=== PATIENT | male | born 1965 | race Caucasian/White ===

== ENCOUNTER → 2016-12-21 | Outpatient (REF) | payer MEDICARE, MEDICAID ==
[2016-12-21 12:58] LABS: BASO % 0.5 % (0.0-1.0); EOS # 0.3 K/mm3 (0.0-0.50); EOS % 4.1 % (0.0-3.0); LARGE UNSTAINED CELL # 0.1 K/mm3 (0.0-0.4); LYMPH # 1.7 K/mm3 (1.5-4.5); MEAN CORPUSCULAR HEMOGLOBIN 31.2 pg (27.0-33.0); MEAN CORPUSCULAR HGB CONC 34.2 g/dl (32.0-36.5); MEAN CORPUSCULAR VOLUME 91.4 fl (80.0-96.0); MONO # 0.4 K/mm3 (0.0-0.8); NEUTROPHILS # 4.3 K/mm3 (1.8-7.7); NEUTROPHILS % 63.4 % (36.0-66.0); PLATELET COUNT, AUTOMATED 286 k/mm3 (150-450); RED CELL DISTRIBUTION WIDTH 13.2 % (11.5-14.5); WHITE BLOOD COUNT 6.7 K/mm3 (4.0-10.0)
[2016-12-21 13:08] LABS: ALBUMIN 3.7 GM/DL (3.2-5.2); ALBUMIN/GLOBULIN RATIO 1.19 (1.00-1.93); ALKALINE PHOSPHATASE 106 U/L (45-117); ALT/SGPT 24 U/L (12-78); ANION GAP 7 MEQ/L (8-16); AST/SGOT 19 U/L (15-37); BILIRUBIN,TOTAL 0.4 MG/DL (0.2-1.0); BLOOD UREA NITROGEN 16 MG/DL (7-18); CALCIUM LEVEL 9.4 MG/DL (8.5-10.1); CARBON DIOXIDE LEVEL 30 MEQ/L (21-32); CHLORIDE LEVEL 106 MEQ/L (98-107); CHOLESTEROL LEVEL 216 MG/DL (<200); GLOMERULAR FILTRATION RATE > 60.0 (>60); GLUCOSE, FASTING 127 MG/DL (70-105); POTASSIUM SERUM 4.6 MEQ/L (3.5-5.1); SODIUM LEVEL 143 MEQ/L (136-145); TOTAL PROTEIN 6.8 GM/DL (6.4-8.2); TRIGLYCERIDES LEVEL 169 MG/DL (<150)
== END ==
LOC: M SFHCADAM 08:11
PROVIDERS: ATTEND Physician Assistant Medical
DX: E78.2 Mixed hyperlipidemia (principal); R06.09 Other forms of dyspnea

== ENCOUNTER 2017-01-01 20:04 | Emergency (ER) | payer MEDICARE, MEDICAID ==
[~2017-01-01] VITALS: Ht 175.3 cm; Wt 86.2 kg
[2017-01-01] MEDS ORDERED: NICOINH IN (20:15)
[2017-01-01] MEDS ORDERED: ADVA230A INH (20:15)
[2017-01-01] MEDS ORDERED: OMEP40CA2 PO (20:15)
[2017-01-01] MEDS ORDERED: PROA1AER INH (20:15)
[2017-01-01] MEDS ORDERED: SIMV20TA2 PO (20:15)
[2017-01-01] MEDS ORDERED: methylPREDNISolone INJ 125 MG/2 ML VIAL (J2930) IV ONE (21:15)
[2017-01-01] MEDS ORDERED: IPRATROPIUM 0.5MG/ALBUTEROL 2.5MG INH SOL UD 3ML (DUONEB)(J7620) NEB PRN (21:15)
[2017-01-01 21:38] LABS: VENOUS BASE EXCESS 4.2 (-2.0-2.0); VENOUS O2 SATURATION 74.7 % (60.0-80.0); VENOUS PARTIAL PRESSURE CO2 43.8 mmHg (38.0-50.0); VENOUS PARTIAL PRESSURE O2 36.1 mmHg (30.0-50.0); VENOUS STANDARD HCO3 27.6 MEQ/L; VENOUS TOTAL CO2 30.4 MEQ/L (24.0-28.0)
[2017-01-01 21:40] LABS: BASO % 0.6 % (0.0-1.0); EOS # 0.3 K/mm3 (0.0-0.50); EOS % 3.9 % (0.0-3.0); LARGE UNSTAINED CELL # 0.1 K/mm3 (0.0-0.4); LARGE UNSTAINED CELL % 0.8 % (0.0-4.0); LYMPH # 2.3 K/mm3 (1.5-4.5); LYMPH % 26.5 % (24.0-44.0); MEAN CORPUSCULAR HEMOGLOBIN 30.4 pg (27.0-33.0); MEAN CORPUSCULAR VOLUME 92.3 fl (80.0-96.0); MONO # 0.5 K/mm3 (0.0-0.8); NEUTROPHILS # 5.2 K/mm3 (1.8-7.7); NEUTROPHILS % 62.2 % (36.0-66.0); PLATELET COUNT, AUTOMATED 230 k/mm3 (150-450); RED CELL DISTRIBUTION WIDTH 13.9 % (11.5-14.5); WHITE BLOOD COUNT 8.4 K/mm3 (4.0-10.0)
[2017-01-01 21:46] VITALS: BP 156/95
[2017-01-01 22:03] LABS: ANION GAP 5 MEQ/L (8-16); BLOOD UREA NITROGEN 18 MG/DL (7-18); CALCIUM LEVEL 8.5 MG/DL (8.5-10.1); CARBON DIOXIDE LEVEL 28 MEQ/L (21-32); CHLORIDE LEVEL 109 MEQ/L (98-107); CREATININE FOR GFR 0.79 MG/DL (0.70-1.30); GLOMERULAR FILTRATION RATE > 60.0 (>60); GLUCOSE, FASTING 111 MG/DL (70-105); POTASSIUM SERUM 4.1 MEQ/L (3.5-5.1); SODIUM LEVEL 142 MEQ/L (136-145)
[2017-01-02] MEDS ORDERED: PRED20TA PO (00:07)
--- NOTE | 2017-01-02 10:34 | REP ---
CHEST X-RAY PA AND LATERAL: 01/01/2017. Comparison: 04/07/2016, 01/12/2016, CT chest 05/11/2016. Clinical history: Dyspnea and cough. Prior lung resection. Findings: Slight volume loss with elevation of the right diaphragm and some surgical clips about the right hilum and lung field. This is consistent with prior partial lung resection. There is no effusion, lateral pleural thickening, apical scarring or acute infiltrate. No pneumothorax. Heart size not enlarged for this degree of inflation. The aorta is mildly tortuous but normal for age. Airway intact. There is an anterior cervical discectomy and fusion plate and screw noted unchanged. No free air. Bones show no compression deformity. Impression: 1. Hypoinflated right chest with prior partial lung resection and clips but no effusion, acute infiltrate or pneumothorax. No visible mass. 2. Cardiomediastinal silhouette with postoperative appearance and heart size exaggerated by low level of inflation. No edema or effusion. 3. Bones without acute finding. No free air. Signed by Wander Muñoz MD 01/02/2017 08:21 P
--- NOTE | 2017-01-03 20:40 | ECGEPIP ---
Stationary ECG Study [facility] - ED Test Date: 2017-01-01 Pat Name: SIN TORRES Department: Room: - Gender: M [employer] Operator: joshua : 1965 Requested By: ORIN Miller Order Number: [id number] Reading MD: Alexa Savage Measurements Intervals [place] Rate: 68 P: 53 MD: 226 QRS: -3 QRSD: 108 T: 15 QT: 365 QTc: 390 Interpretive Statements SINUS RHYTHM WITH FIRST DEGREE AV BLOCK NO PRIOR FOR COMPARISON Electronically Signed On 01-03-2017 20:39:45 EDT by Alexa Savage
== END 2017-01-02 00:17 | disposition home or self-care (01) ==
LOC: EDBD 20:04 → M ED 21:15
DX: J44.1 Chronic obstructive pulmonary disease with (acute) exacerbation (principal); F17.210 Nicotine dependence, cigarettes, uncomplicated; Z79.51 Long term (current) use of inhaled steroids; Z79.899 Other long term (current) drug therapy
CPT/HCPCS: 36415; 71020; 80048; 82550; 82553; 82803; 84484; 85025; 87040; 87804; 93005; 93041; 94640; 96374; 99285; J2930

== ENCOUNTER → 2017-01-04 | Outpatient (CLI) | payer MEDICARE, MEDICAID ==
[~2017-01-04] MED LIST: ADVA230A INH; NICOINH IN; OMEP40CA2 PO; PRED20TA PO; PROA1AER INH; SIMV20TA2 PO
--- NOTE | 2017-01-04 16:48 | REP ---
LEFT HIP, TWO VIEWS: Two views of the left hip are performed. There is no acute fracture or dislocation. There is mild to moderate joint space narrowing diffusely with subchondral sclerosis and mild to moderate spurring. IMPRESSION: Mild to moderate degenerative changes of the left hip. Signed by Timo Camejo MD 01/04/2017 04:51 P
--- NOTE | 2017-01-04 16:53 | REP ---
LUMBOSACRAL SPINE: Five views of the lumbosacral spine are performed. There is no compression fracture. There is spondylolysis of L5 with mild anterior grade 1 spondylolisthesis of L5 on S1. There is moderate diffuse spurring. There is relatively mild disc space narrowing at all levels with subchondral sclerosis. There is sclerosis at the posterior facet joints. IMPRESSION: Diffuse degenerative changes. There is spondylosis of L5 with mild anterior grade 1 spondylolisthesis of L5 on S1. Signed by Timo Camejo MD 01/05/2017 04:20 P
== END ==
LOC: M ADAMS 15:40
PROVIDERS: ATTEND Physician Assistant Medical
DX: M16.12 Unilateral primary osteoarthritis, left hip (principal); M47.816 Spondylosis without myelopathy or radiculopathy, lumbar region; M47.817 Spondylosis without myelopathy or radiculopathy, lumbosacral region
CPT/HCPCS: 72110; 73502; G0463

== ENCOUNTER 2017-02-20 01:39 | Emergency (ER) | payer MEDICARE, MEDICAID ==
[~2017-02-20] VITALS: Ht 180.3 cm; Wt 88.5 kg
[~2017-02-20 01:39] MED LIST changes: -NICOINH IN; +NICOINH INH
[2017-02-20 05:15] VITALS: BP 149/96
--- NOTE | 2017-02-20 07:41 | REP ---
Clinical: Cough . Comparison: 01/01/2017 . Technique: PA and lateral. Findings: The mediastinum and cardiac silhouette are normal. The lung wall are stable and without acute consolidation, effusion, or pneumothorax. The skeletal structures are intact and normal. Impression: 1. No acute cardiopulmonary process. Signed by Trey Tolentino MD 02/20/2017 07:32 A
[2017-03-03] MEDS ORDERED: ALL10TAB27 PO (11:21)
[2017-03-03] MEDS ORDERED: BENZ100C5 PO (11:21)
== END 2017-02-20 05:18 | disposition home or self-care (01) ==
LOC: M ED 03:08
DX: J06.9 Acute upper respiratory infection, unspecified (principal); J44.9 Chronic obstructive pulmonary disease, unspecified; Z85.118 Personal history of other malignant neoplasm of bronchus and lung; F17.210 Nicotine dependence, cigarettes, uncomplicated; Z79.899 Other long term (current) drug therapy

== ENCOUNTER → 2017-03-05 | Outpatient (CLI) | payer MEDICARE, MEDICAID ==
[~2017-03-05] VITALS: Ht 175.3 cm; Wt 88.5 kg
[~2017-03-05] MED LIST changes: +ALL10TAB27 PO; +BENZ100C5 PO; +LABETALOL HCL 100 MG/20 ML VIAL As Ordered ONE; +LIDOCAINE 2% INJ 100 MG/5 ML SDV (FOR ANES.) As Ordered ONE; +NS 1,000 ML IV ONE; +PROPOFOL 200 MG/20 ML VIAL As Ordered ONE
--- NOTE | 2017-03-05 12:17 | ROOR ---
Patient Name: Phill Gardner Procedure Date: 03/05/2017 12:02 PM Date of : 1965 Age: 51 Room: [facility] Gender: Male Note Status: Finalized Procedure: Upper GI endoscopy Indications: Heartburn Providers: Jimbo MIRANDA MD Referring MD: DIANA Luo Requesting Provider: Medicines: Monitored Anesthesia Care Complications: No immediate complications. Procedure: Pre-Anesthesia Assessment: - The heart rate, respiratory rate, oxygen saturations, blood pressure, adequacy of pulmonary ventilation, and response to care were monitored throughout the procedure. The Endoscope was introduced through the mouth, and advanced to the second part of duodenum. The upper GI endoscopy was accomplished without difficulty. The patient tolerated the procedure well. Findings: The esophagus was normal. The stomach was normal. The examined duodenum was normal. Impression: - Normal esophagus. - Normal stomach. - Normal examined duodenum. - No specimens collected. Recommendation: - Follow an antireflux regimen. - Continue present medications. Jimbo Miranda MD Jimbo MIRANDA MD 03/05/2017 12:16:59 PM This report has been signed electronically. Number of Addenda: 0 Note Initiated On: 03/05/2017 12:02 PM Estimated Blood Loss: Estimated blood loss: none.
--- NOTE | 2017-03-05 12:37 | ROOR ---
Patient Name: Phill Gardner Procedure Date: 03/05/2017 12:03 PM Date of : 1965 Age: 51 Room: [facility] Gender: Male Note Status: Finalized Procedure: Colonoscopy Indications: Melena, Change in bowel habits, Constipation Providers: Jimbo MIRANDA MD Referring MD: DIANA Luo Requesting Provider: Medicines: Monitored Anesthesia Care Complications: No immediate complications. Procedure: Pre-Anesthesia Assessment: - The heart rate, respiratory rate, oxygen saturations, blood pressure, adequacy of pulmonary ventilation, and response to care were monitored throughout the procedure. The Colonoscope was introduced through the anus and advanced to the cecum, identified by appendiceal orifice and ileocecal valve. The colonoscopy was performed without difficulty. The patient tolerated the procedure well. The quality of the bowel preparation was good. Findings: The perianal and digital rectal examinations were normal. Two sessile polyps were found in the sigmoid colon and splenic flexure. The polyps were 4 to 5 mm in size. These polyps were removed with a cold snare. Resection and retrieval were complete. Internal hemorrhoids were found during retroflexion. The hemorrhoids were small. The exam was otherwise without abnormality on direct and retroflexion views. Impression: - Two 4 to 5 mm polyps in the sigmoid colon and at the splenic flexure, removed with a cold snare. Resected and retrieved. - Internal hemorrhoids. - The examination was otherwise normal on direct and retroflexion views. Recommendation: - Telephone endoscopist for pathology results in 2 weeks. - If the pathology report reveals adenomatous tissue, then repeat the colonoscopy for surveillance in 5 years. Jimbo Miranda MD Jimbo MIRANDA MD 03/05/2017 12:37:00 PM This report has been signed electronically. Number of Addenda: 0 Note Initiated On: 03/05/2017 12:03 PM Estimated Blood Loss: Estimated blood loss: none.
[2017-03-05 13:15] VITALS: BP 178/102
== END | disposition home or self-care (01) ==
LOC: M OPP 10:42
PROVIDERS: ATTEND Internal Medicine Gastroenterology
DX: R19.4 Change in bowel habit (principal); K92.1 Melena; D12.5 Benign neoplasm of sigmoid colon; D12.3 Benign neoplasm of transverse colon; K64.8 Other hemorrhoids; R12 Heartburn; E78.5 Hyperlipidemia, unspecified; M54.9 Dorsalgia, unspecified; J45.909 Unspecified asthma, uncomplicated; Z85.118 Personal history of other malignant neoplasm of bronchus and lung; Z80.7 Family history of other malignant neoplasms of lymphoid, hematopoietic and related tissues; F10.21 Alcohol dependence, in remission; F17.210 Nicotine dependence, cigarettes, uncomplicated; Z79.899 Other long term (current) drug therapy

== ENCOUNTER → 2017-04-19 | Outpatient (REF) | payer MEDICARE, MEDICAID ==
[~2017-04-19] MED LIST changes: -LABETALOL HCL 100 MG/20 ML VIAL As Ordered ONE; -LIDOCAINE 2% INJ 100 MG/5 ML SDV (FOR ANES.) As Ordered ONE; -NS 1,000 ML IV ONE; -PROA1AER INH; +PROAAER10 INH; -PROPOFOL 200 MG/20 ML VIAL As Ordered ONE
== END ==
LOC: M LAB REF 11:48
PROVIDERS: ATTEND Otolaryngology
DX: K13.70 Unspecified lesions of oral mucosa (principal)

== ENCOUNTER → 2017-04-29 | Outpatient (CLI) | payer MEDICARE, MEDICAID ==
--- NOTE | 2017-04-29 11:49 | REP ---
Chest two views HISTORY: Asthma Comparison: 02/20/2017 There is elevation of the right hemidiaphragm. The lungs are clear. The heart is normal in size. The pulmonary vasculature is normal in appearance. Surgical clips are present in the the right hilar region. There has been partial resection of the right 6th rib. IMPRESSION: No acute disease. Signed by Can Lopez MD 04/29/2017 11:40 A
== END ==
LOC: M RAD 11:10
PROVIDERS: ATTEND Internal Medicine Pulmonary Disease
DX: J45.20 Mild intermittent asthma, uncomplicated (principal)

== ENCOUNTER 2017-08-09 17:03 | Emergency (ER) | payer MEDICARE, MEDICAID ==
[~2017-08-09] VITALS: Ht 175.3 cm; Wt 86.4 kg
[2017-08-09] MEDS ORDERED: GABA-283 PO (17:23)
[2017-08-09] MEDS ORDERED: NAPR-855 (17:23)
[2017-08-09] MEDS ORDERED: LISI-538 PO (17:23)
[2017-08-09] MEDS ORDERED: NAPR250T45 PO (17:23)
--- NOTE | 2017-08-09 19:40 | REP ---
LEFT HAND COMPLETE: 08/09/2017. Clinical history: Injury, swelling left thumb. Four views are provided. Carpal bones and joint spaces are grossly intact. The distal radius and ulna is grossly intact. There is soft tissue swelling about the IP joint of the thumb without visible or displaced fracture. The tiny rounded calcific density on the lateral view at the anterior or volar margin of the IP joint of the thumb. No fracture or avulsion identified. No visible foreign body. Minor degenerative changes of the first MCP joint. Lesser degenerative changes of the other MCP joints and some of the IP joints. No erosive changes or destruction. Impression: 1. Soft tissues okay about the PIP joint of the thumb without visible or displaced fracture nor any definite avulsion. A tiny rounded calcific density along the volar aspect of the at IP joint of the thumb. This is a smooth regular calcification not an acute fracture or avulsion. 2. Degenerative changes, MCP joint thumb and other digits. No acute fracture or other acute finding. Signed by Wander Muñoz MD 08/09/2017 08:06 P
[2017-08-09] MEDS ORDERED: BACT800T5 PO (21:04)
[2017-08-09 21:15] VITALS: BP 136/94
== END 2017-08-09 21:16 | disposition home or self-care (01) ==
LOC: M ED 17:03
DX: L03.114 Cellulitis of left upper limb (principal); W26.0XXA Contact with knife, initial encounter; Y92.099 Unspecified place in other non-institutional residence as the place of occurrence of the external cause; Y93.9 Activity, unspecified; Y99.9 Unspecified external cause status; I10 Essential (primary) hypertension; J45.909 Unspecified asthma, uncomplicated; Z85.118 Personal history of other malignant neoplasm of bronchus and lung; F17.200 Nicotine dependence, unspecified, uncomplicated; Z79.899 Other long term (current) drug therapy

== ENCOUNTER → 2017-09-22 | Outpatient (REF) | payer MEDICARE, MEDICAID ==
[2017-09-22 13:22] LABS: BASO # 0.1 10^3/uL (0.0-0.2); EOS # 0.6 10^3/uL (0.0-0.50); EOS % 7.5 % (0.0-3.0); IMMATURE GRANULOCYTE % 0.1 % (0-0); LYMPH # 1.9 10^3/uL (1.5-4.5); LYMPH % 25.5 % (24.0-44.0); MEAN CORPUSCULAR HEMOGLOBIN 31.1 pg (27.0-33.0); MEAN CORPUSCULAR HGB CONC 33.7 g/dl (32.0-36.5); MEAN CORPUSCULAR VOLUME 92.4 fl (80.0-96.0); MONO # 0.6 10^3/uL (0.0-0.8); MONO % 8.5 % (0.0-5.0); NEUTROPHILS # 4.2 10^3/uL (1.8-7.7); NEUTROPHILS % 57.4 % (36.0-66.0); PLATELET COUNT, AUTOMATED 287 10^3/uL (150-450); RED CELL DISTRIBUTION WIDTH 13.2 % (11.5-14.5); WHITE BLOOD COUNT 7.3 10^3/uL (4.0-10.0)
[2017-09-22 13:53] LABS: ALBUMIN 3.9 GM/DL (3.2-5.2); ALKALINE PHOSPHATASE 113 U/L (45-117); ALT/SGPT 18 U/L (12-78); ANION GAP 5 MEQ/L (8-16); AST/SGOT 16 U/L (7-37); BILIRUBIN,TOTAL 0.3 MG/DL (0.2-1.0); BLOOD UREA NITROGEN 14 MG/DL (7-18); CALCIUM LEVEL 8.8 MG/DL (8.5-10.1); CARBON DIOXIDE LEVEL 29 MEQ/L (21-32); CHLORIDE LEVEL 108 MEQ/L (98-107); CHOLESTEROL LEVEL 220 MG/DL (<200); CREATININE FOR GFR 0.79 MG/DL (0.70-1.30); GLOMERULAR FILTRATION RATE > 60.0 (>56); GLUCOSE, FASTING 92 MG/DL (70-105); POTASSIUM SERUM 4.2 MEQ/L (3.5-5.1); SODIUM LEVEL 142 MEQ/L (136-145); TOTAL PROTEIN 6.9 GM/DL (6.4-8.2); TRIGLYCERIDES LEVEL 152 MG/DL (<150)
== END ==
LOC: M SFHCADAM 08:19
DX: E78.2 Mixed hyperlipidemia (principal); J45.30 Mild persistent asthma, uncomplicated
CPT/HCPCS: 84443

== ENCOUNTER → 2018-03-21 | Outpatient (REF) | payer MEDICARE, OTHER ==
[2018-03-22 08:58] LABS: BASO # 0.1 10^3/uL (0.0-0.2); BASO % 0.7 % (0.0-1.0); EOS # 0.8 10^3/uL (0.0-0.50); EOS % 8.5 % (0.0-3.0); HEMOGLOBIN 14.3 g/dl (13.5-17.5); IMMATURE GRANULOCYTE % 0.2 % (0-3.0); LYMPH # 1.8 10^3/uL (1.5-4.5); LYMPH % 19.6 % (24.0-44.0); MEAN CORPUSCULAR HEMOGLOBIN 30.6 pg (27.0-33.0); MEAN CORPUSCULAR HGB CONC 31.1 g/dl (32.0-36.5); MEAN CORPUSCULAR VOLUME 98.5 fl (80.0-96.0); MONO # 0.6 10^3/uL (0.0-0.8); NEUTROPHILS # 5.7 10^3/uL (1.8-7.7); PLATELET COUNT, AUTOMATED 252 10^3/uL (150-450); RED BLOOD COUNT 4.67 10^6/uL (4.30-6.10); RED CELL DISTRIBUTION WIDTH 14.8 % (11.5-14.5)
[2018-03-22 09:34] LABS: ALBUMIN 3.6 GM/DL (3.2-5.2); ALBUMIN/GLOBULIN RATIO 1.29 (1.00-1.93); ALKALINE PHOSPHATASE 110 U/L (45-117); ALT/SGPT 27 U/L (12-78); ANION GAP 7 MEQ/L (8-16); AST/SGOT 18 U/L (7-37); BILIRUBIN,TOTAL 0.4 MG/DL (0.2-1.0); BLOOD UREA NITROGEN 11 MG/DL (7-18); CALCIUM LEVEL 8.5 MG/DL (8.5-10.1); CARBON DIOXIDE LEVEL 29 MEQ/L (21-32); CHLORIDE LEVEL 107 MEQ/L (98-107); CHOLESTEROL LEVEL 179 MG/DL (<200); CHOLESTEROL RISK RATIO 5.593 (<5); CREATININE FOR GFR 0.88 MG/DL (0.70-1.30); GLOMERULAR FILTRATION RATE > 60.0 (>56); GLUCOSE, FASTING 122 MG/DL (70-100); HDL CHOLESTEROL 32 MG/DL (>40); LDL CHOLESTEROL 128.2 MG/DL (<100); NON-HDL-C 147 MG/DL; POTASSIUM SERUM 4.3 MEQ/L (3.5-5.1); SODIUM LEVEL 143 MEQ/L (136-145); TOTAL PROTEIN 6.4 GM/DL (6.4-8.2); TRIGLYCERIDES LEVEL 94 MG/DL (<150)
== END ==
LOC: M SFHCADAM 08:46
DX: E78.2 Mixed hyperlipidemia (principal); I10 Essential (primary) hypertension
CPT/HCPCS: 80053

== ENCOUNTER → 2018-03-24 | Outpatient (REF) | payer MEDICARE, OTHER ==
[2018-03-24 13:36] LABS: ESTIMATED AVERAGE GLUCOSE 114 MG/DL (60-110); HEMOGLOBIN A1c 5.6 %
== END ==
LOC: M SFHCADAM 10:54
DX: R73.01 Impaired fasting glucose (principal)
CPT/HCPCS: 83036

== ENCOUNTER → 2018-08-30 | Outpatient (REF) | payer MEDICARE, OTHER | LOC: M ADAMS 09:05 | DX: M25.511 Pain in right shoulder (principal) | CPT/HCPCS: 73030 ==

== ENCOUNTER → 2018-09-14 | Outpatient (REF) | payer MEDICARE, OTHER ==
[~2018-09-14] MED LIST changes: +BACT800T5 PO; +BENZ-18 PO; -BENZ100C5 PO; +GABA-845 PO; +LISI-538 PO; +NAPR-855; +NAPR250T82 PO
[2018-09-14 12:34] LABS: BASO # 0.1 10^3/uL (0.0-0.2); BASO % 0.8 % (0.0-1.0); EOS # 0.8 10^3/uL (0.0-0.50); EOS % 8.9 % (0.0-3.0); HEMATOCRIT 47.1 % (42.0-52.0); LYMPH % 23.8 % (24.0-44.0); MEAN CORPUSCULAR HEMOGLOBIN 30.4 pg (27.0-33.0); MEAN CORPUSCULAR VOLUME 89.5 fl (80.0-96.0); MONO # 0.8 10^3/uL (0.0-0.8); NEUTROPHILS # 4.7 10^3/uL (1.8-7.7); NEUTROPHILS % 56.4 % (36.0-66.0); PLATELET COUNT, AUTOMATED 299 10^3/uL (150-450); RED BLOOD COUNT 5.26 10^6/uL (4.30-6.10); WHITE BLOOD COUNT 8.4 10^3/uL (4.0-10.0)
[2018-09-14 13:02] LABS: MALB URINE SIEMENS 7.3 MG/L; MAU/CREAT RATIO 9.1 MCG/MG (0.0-30.0)
[2018-09-14 13:17] LABS: ALBUMIN 3.8 GM/DL (3.2-5.2); ALT/SGPT 28 U/L (12-78); BILIRUBIN,TOTAL 0.4 MG/DL (0.2-1.0); BLOOD UREA NITROGEN 16 MG/DL (7-18); CALCIUM LEVEL 9.2 MG/DL (8.5-10.1); CARBON DIOXIDE LEVEL 33 MEQ/L (21-32); CHLORIDE LEVEL 102 MEQ/L (98-107); CHOLESTEROL LEVEL 212 MG/DL (<200); CHOLESTEROL RISK RATIO 7.066 (<5); CREATININE FOR GFR 0.82 MG/DL (0.70-1.30); GLOMERULAR FILTRATION RATE > 60.0 (>56); GLUCOSE, FASTING 103 MG/DL (70-100); HDL CHOLESTEROL 30 MG/DL (>40); LDL CHOLESTEROL 157 MG/DL (<100); NON-HDL-C 182 MG/DL; POTASSIUM SERUM 4.7 MEQ/L (3.5-5.1); SODIUM LEVEL 138 MEQ/L (136-145); TOTAL PROTEIN 6.9 GM/DL (6.4-8.2); TRIGLYCERIDES LEVEL 126 MG/DL (<150)
[2018-09-14 14:00] LABS: HEMOGLOBIN A1c 5.9 %
== END ==
LOC: M SFHCADAM 08:16
PROVIDERS: ATTEND Physician Assistant Medical
DX: I10 Essential (primary) hypertension (principal); F10.20 Alcohol dependence, uncomplicated; E78.2 Mixed hyperlipidemia; M51.36 Other intervertebral disc degeneration, lumbar region; R73.01 Impaired fasting glucose

== ENCOUNTER → 2019-03-17 | Outpatient (REF) | payer MEDICARE, OTHER ==
[~2019-03-17] MED LIST changes: -ALL10TAB27 PO; +ALL10TAB28 PO
[2019-03-17 13:15] LABS: BASO % 0.7 % (0.0-1.0); EOS # 0.4 10^3/uL (0.0-0.50); EOS % 6.6 % (0.0-3.0); HEMATOCRIT 45.8 % (42.0-52.0); HEMOGLOBIN 15.5 g/dl (13.5-17.5); LYMPH # 1.9 10^3/uL (1.5-4.5); LYMPH % 32.2 % (24.0-44.0); MEAN CORPUSCULAR HGB CONC 33.8 g/dl (32.0-36.5); MEAN CORPUSCULAR VOLUME 94.6 fl (80.0-96.0); MONO # 0.5 10^3/uL (0.0-0.8); MONO % 8.2 % (0.0-5.0); NEUTROPHILS % 52.1 % (36.0-66.0); PLATELET COUNT, AUTOMATED 245 10^3/uL (150-450); RED BLOOD COUNT 4.84 10^6/uL (4.30-6.10); WHITE BLOOD COUNT 5.8 10^3/uL (4.0-10.0)
[2019-03-17 13:28] LABS: ALBUMIN 3.7 GM/DL (3.2-5.2); ALT/SGPT 36 U/L (12-78); BILIRUBIN,TOTAL 0.5 MG/DL (0.2-1.0); BLOOD UREA NITROGEN 23 MG/DL (7-18); CALCIUM LEVEL 9.1 MG/DL (8.5-10.1); CARBON DIOXIDE LEVEL 31 MEQ/L (21-32); CHLORIDE LEVEL 102 MEQ/L (98-107); CHOLESTEROL LEVEL 203 MG/DL (<200); CREATININE FOR GFR 1.13 MG/DL (0.70-1.30); GLOMERULAR FILTRATION RATE > 60.0 (>56); GLUCOSE, FASTING 141 MG/DL (70-100); HDL CHOLESTEROL 28 MG/DL (>40); LDL CHOLESTEROL 138 MG/DL (<100); NON-HDL-C 175 MG/DL; POTASSIUM SERUM 4.3 MEQ/L (3.5-5.1); SODIUM LEVEL 139 MEQ/L (136-145); TOTAL PROTEIN 6.6 GM/DL (6.4-8.2); TRIGLYCERIDES LEVEL 186 MG/DL (<150)
[2019-03-17 14:32] LABS: HEMOGLOBIN A1c 5.8 %
== END ==
LOC: M SFHCADAM 08:08
PROVIDERS: ATTEND Physician Assistant Medical
DX: E78.2 Mixed hyperlipidemia (principal); R73.01 Impaired fasting glucose; I50.32 Chronic diastolic (congestive) heart failure

== ENCOUNTER → 2019-05-04 | Outpatient (CLI) | payer MEDICARE ==
--- NOTE | 2019-05-04 16:06 | REP ---
LUMBAR SPINE, FIVE VIEWS: HISTORY: Back pain. COMPARISON: 01/04/2017 There is no acute fracture. The lumbar intervertebral discs are decreased in height consistent with disc degeneration. Osteophytes are present on L1 through L4. There is narrowing of the L4-5 and L5-S1 facet joints. There are 15 mm of grade 2 spondylolisthesis of L5 on S1. This is associated with L5 pars defects. IMPRESSION: Degenerative change as described above. Electronically Signed by Can Lopez MD 05/04/2019 04:40 P
--- NOTE | 2019-05-04 18:20 | REP ---
HISTORY: Hip pain. COMPARISON: 01/04/2017 There are degenerative changes, status quo. No acute fracture, dislocation or subluxation has developed. IMPRESSION: No change. Mild degenerative changes. Electronically Signed by Nabor Michaels DO 05/05/2019 10:31 A
== END ==
LOC: M ADAMS 13:54
PROVIDERS: ATTEND Physician Assistant Medical
DX: M16.12 Unilateral primary osteoarthritis, left hip (principal); M25.78 Osteophyte, vertebrae; M25.552 Pain in left hip; M51.36 Other intervertebral disc degeneration, lumbar region; M43.17 Spondylolisthesis, lumbosacral region

== ENCOUNTER → 2019-05-24 | Outpatient (CLI) | payer MEDICARE, MEDICAID ==
[~2019-05-24] MED LIST changes: -ALL10TAB28 PO; +ALL10TAB29 PO
--- NOTE | 2019-05-25 11:48 | REP ---
MRI of the lumbar spine without contrast Indication: DDD. Lumbar spondylosis L5 S1. Comparison: MRI of the lumbar spine of 02/27/2009. Technique: MRI of the lumbar spine was performed utilizing sagittal STIR, T1 and T2, and axial T1 and T2 weighted imaging. No intravenous contrast was administered. Findings: There is 8 mm anterolisthesis of L5 on S1, similar to prior, with bilateral spondylolysis. There is 2 mm retrolisthesis of L4 on L5, new since the prior. There is mild dextrocurvature of the lumbar spine. There is similar T1-T2 hypointensity within the L1 vertebral body, marginating the superior endplate, likely sclerosis. There is mild marrow edema within the L5 vertebral body posteriorly. There is mild loss of height of the L5 vertebral body, similar to prior. Remaining vertebral body heights are maintained. There is loss of disc height and desiccation at L5 S1. The visualized spinal cord is normal. The conus medullaris terminates at the level of L1. There is prominence of the circumferential epidural fat at L5-S1 with distortion of the thecal sac, new since the prior. Level specific observations: L1-L2: No significant spinal canal stenosis or neural foraminal narrowing. L2-L3, L3-L4: Disc bulge. No significant spinal canal stenosis or neural foraminal narrowing. L4-L5: Annular fissure. Diffuse disc bulge. Left paracentral inferior disc extrusion. Moderate left neural foraminal narrowing, progressed. L5-S1: Anterolisthesis with uncovering of the disc. Bilateral facet arthropathy. Severe bilateral neural foraminal narrowing, similar to prior. Circumferential prominence of the epidural fat, new since the prior study. Impression: When compared to the 02/27/2009 examination, there is left paracentral disc extrusion with progressive left neural foraminal narrowing at L4-L5. Similar appearance of L5 S1 anterolisthesis with bilateral pars defects. Newly apparent 2 mm retrolisthesis of L4 on L5 and marrow edema within the posterior aspect of the L5 vertebral body, presumably degenerative. Prominence of the epidural fat at L5 S1 with tapering of the thecal sac is new since 2008. Electronically Signed by Alina Lorenzo MD 05/25/2019 11:39 A
== END ==
LOC: M RAD 18:07
PROVIDERS: ATTEND Family Medicine
DX: M51.36 Other intervertebral disc degeneration, lumbar region (principal); M43.17 Spondylolisthesis, lumbosacral region

== ENCOUNTER 2019-07-08 20:04 | Emergency (ER) | payer MEDICARE, MEDICAID ==
[~2019-07-08] VITALS: Ht 177.8 cm; Wt 90.0 kg
[~2019-07-08 20:04] MED LIST changes: -OMEP40CA2 PO; +OMEP40CA97 PO
[2019-07-08] MEDS ORDERED: NS 1,000 ML IV SCH (20:16)
[2019-07-08] MEDS ORDERED: TIOT18INH INH (20:20)
[2019-07-08] MEDS ORDERED: CHLO125TA PO (20:20)
[2019-07-08] MEDS ORDERED: AMOX875T2 PO (20:20)
[2019-07-08] MEDS ORDERED: AMLO5TAB6 PO (20:20)
[2019-07-08] MEDS ORDERED: methylPREDNISolone INJ 125 MG/2 ML VIAL (J2930) IV ONE (20:30)
[2019-07-08] MEDS: IPRATROPIUM 0.5MG/ALBUTEROL 2.5MG INH SOL UD 3ML (DUONEB)(J7620) NEB PRN ×2 (20:41→20:57)
[2019-07-08] MEDS: MAG SULF 1GM/100ML (MAG RUN) 1 GM in IV 1 EA IV SCH ×2 (20:57→21:18)
[2019-07-08 21:04] LABS: ABG BASE EXCESS 0.3 (-2.0-2.0); ABG O2 SATURATION 95.5 % (95.0-99.0); ABG PARTIAL PRESSURE CO2 31.6 mmHg (35.0-45.0); ABG STANDARD HCO3 24.7 MEQ/L (22.0-26.0)
[2019-07-08 21:06] LABS: BASO # 0.1 10^3/uL (0.0-0.2); BASO % 0.7 % (0.0-1.0); EOS # 0.3 10^3/uL (0.0-0.5); EOS % 3.5 % (0.0-3.0); HEMATOCRIT 36.7 % (42.0-52.0); HEMOGLOBIN 12.6 g/dl (13.5-17.5); LYMPH # 2.4 10^3/uL (1.5-5.0); LYMPH % 26.3 % (24.0-44.0); MEAN CORPUSCULAR HEMOGLOBIN 32.1 pg (27.0-33.0); MEAN CORPUSCULAR HGB CONC 34.3 g/dl (32.0-36.5); MEAN CORPUSCULAR VOLUME 93.6 fl (80.0-96.0); MONO # 0.9 10^3/uL (0.0-0.8); MONO % 9.8 % (0.0-5.0); NEUTROPHILS # 5.4 10^3/uL (1.5-8.5); NEUTROPHILS % 59.5 % (36.0-66.0); PLATELET COUNT, AUTOMATED 231 10^3/uL (150-450); RED BLOOD COUNT 3.92 10^6/uL (4.30-6.10)
[2019-07-08 21:17] LABS: INR 0.98; PROTHROMBIN TIME 12.7 SECONDS (11.8-14.0)
[2019-07-08 21:19] LABS: D-DIMER QUANT 716.73 ng/ml (<500)
[2019-07-08 21:28] LABS: BLOOD UREA NITROGEN 10 MG/DL (7-18); CALCIUM LEVEL 8.6 MG/DL (8.5-10.1); CARBON DIOXIDE LEVEL 25 MEQ/L (21-32); CHLORIDE LEVEL 110 MEQ/L (98-107); CK-MB VALUE MASS < 1.0 NG/ML (<3.6); CPK CREATINE PHOSPHOKINASE 58 U/L (39-308); CREATININE FOR GFR 0.86 MG/DL (0.70-1.30); GLOMERULAR FILTRATION RATE > 60.0 (>56); GLUCOSE, FASTING 107 MG/DL (70-100); MB/CK RELATIVE INDEX 1.72 (< OR =4); POTASSIUM SERUM 3.4 MEQ/L (3.5-5.1); SODIUM LEVEL 141 MEQ/L (136-145); TROPONIN I < 0.02 NG/ML (< 0.10)
[2019-07-08] MEDS ORDERED: ISOVUE-370 76% 100ML VIAL (Q9967) As Ordered ONE (21:44)
--- NOTE | 2019-07-08 22:42 | REPVR ---
PROCEDURE INFORMATION: Exam: CT Angiography Chest With Contrast Exam date and time: 07/08/2019 9:47 PM Clinical history: 53 years old, male; Abnormal findings; Abnormal diagnostic tests; Elevated d-dimer; Additional info: Elevated d dimer TECHNIQUE: Imaging protocol: Computed tomographic angiography of the chest with intravenous contrast. 3D rendering: MIP reconstructed images were created and reviewed. Radiation optimization: All CT scans at this facility use at least one of these dose optimization techniques: automated exposure control; mA and/or kV adjustment per patient size (includes targeted exams where dose is matched to clinical indication); or iterative reconstruction. Contrast material: ISOVUE 370; Contrast volume: 75 ml; Contrast route: IV; COMPARISON: CT ANGIO CHEST 04/14/2015 11:07 PM FINDINGS: Limitations: Limited by patient's body habitus. Pulmonary arteries: No filling defects in the pulmonary arteries to suggest pulmonary emboli. Aorta: Unremarkable. No aortic aneurysm. No aortic dissection. Lungs: Mild/moderate centrilobular pulmonary emphysema. Right posterior upper lobe bronchial wall thickening and scattered small areas of mucus plugging and branching nodularity, evidence of bronchiolitis. 4 mm right lung nodule on series 402 image 41 is unchanged. There is a pulmonary parenchymal calcification consistent with remote granulomatous organism exposure. Right lower lobectomy. Pleural space: Unremarkable. No pneumothorax. No pleural effusion. Heart: Top normal heart size. Spleen: Splenomegaly. Stomach and bowel: Gastric thickening. Lymph nodes: Unremarkable. No enlarged lymph nodes. Bones/joints: Cervical spinal fusion. Multiple clips with previous right-sided thoracotomy. Soft tissues: Unremarkable. IMPRESSION: 1. No filling defects in the pulmonary arteries to suggest pulmonary emboli. 2. Mild/moderate centrilobular pulmonary emphysema. 3. Right posterior upper lobe bronchial wall thickening and scattered small areas of mucus plugging and branching nodularity, evidence of bronchiolitis. Electronically signed by: Jimob Jha On 07/08/2019 22:42:29 PM
[2019-07-08] MEDS ORDERED: LEVA1TAB2 PO (22:55)
[2019-07-08] MEDS ORDERED: PRED20TA PO (22:55)
[2019-07-08 23:01] VITALS: BP 150/76
--- NOTE | 2019-07-09 09:05 | REP ---
REASON: Cough. COMPARISON: 04/29/2017 TWO-VIEW CHEST: COMPARISON: No priors. FINDINGS: The superior mediastinal structures are midline. The cardiac silhouette is unremarkable in size, shape, and position. The diaphragmatic surfaces of the lungs are regular, and the costophrenic angles are clear. The pulmonary wall are clear. The imaged osseous structures are intact. IMPRESSION: There is no acute cardiopulmonary disease. No change. Electronically Signed by Nabor Michaels DO 07/09/2019 09:11 A
--- NOTE | 2019-07-09 19:05 | ECGEPIP ---
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
== END 2019-07-08 23:10 | disposition home or self-care (01) ==
LOC: M ED 20:04
DX: J40 Bronchitis, not specified as acute or chronic (principal); M54.2 Cervicalgia; J45.909 Unspecified asthma, uncomplicated; Z79.51 Long term (current) use of inhaled steroids; Z79.899 Other long term (current) drug therapy
CPT/HCPCS: 36600; 71046; 71275; 80048; 82550; 82553; 82803; 83605; 84484; 85025; 85379; 85610; 87040; 87486; 87581; 87633; 87798; 93005; 93041; 94640; 96365; 96366; 96375; 99285; J2930; J3475; Q9967

== ENCOUNTER 2019-08-16 07:46 | Emergency (ER) | payer MEDICARE, MEDICAID ==
[~2019-08-16] VITALS: Ht 177.8 cm; Wt 90.9 kg
[~2019-08-16 07:46] MED LIST changes: +AMLO5TAB6 PO; +AMOX875T2 PO; +CHLO125TA PO; +LEVA1TAB2 PO; +TIOT18INH INH
[2019-08-16] MEDS ORDERED: KETOROLAC 30 MG/ML VIAL (J1885) IV ONE (08:15)
[2019-08-16] MEDS ORDERED: ACETAMINOPHEN 500 MG TAB PO ONE (08:15)
[2019-08-16] MEDS ORDERED: LIDOCAINE 5% (LIDODERM) PATCH TD ONE (08:15)
[2019-08-16] MEDS ORDERED: NAPR-837 PO (09:58)
[2019-08-16] MEDS ORDERED: LIDO5DIS41 TOP (09:59)
[2019-08-16 10:00] VITALS: BP 130/85
[2019-08-16] MEDS ORDERED: NS IV ONE (10:00)
[2019-08-16] MEDS ORDERED: KETAMINE HCL IV ONE (10:00)
[2019-08-16] MEDS ORDERED: **NOTE PATIENT COMMENT** MISC XX SCH (21:00)
== END 2019-08-16 10:26 | disposition home or self-care (01) ==
LOC: M ED 07:46 → EDBD 07:46 → M ED 10:26
DX: G89.29 Other chronic pain (principal); M54.5 Low back pain; I10 Essential (primary) hypertension; J45.909 Unspecified asthma, uncomplicated; Z85.9 Personal history of malignant neoplasm, unspecified; Z79.1 Long term (current) use of non-steroidal anti-inflammatories (NSAID); Z79.51 Long term (current) use of inhaled steroids; Z79.84 Long term (current) use of oral hypoglycemic drugs; Z79.899 Other long term (current) drug therapy
CPT/HCPCS: 94760; 96365; 96375; 99284; J1885

== ENCOUNTER 2019-09-29 05:14 | Emergency (ER) | payer MEDICARE, MEDICAID ==
[~2019-09-29] VITALS: Ht 177.8 cm; Wt 88.6 kg
[~2019-09-29 05:14] MED LIST changes: +LIDO5DIS41 TOP; +NAPR-837 PO; -SIMV20TA2 PO; +SIMV20TA22 PO
[2019-09-29] MEDS ORDERED: ACETAMINOPHEN 500 MG TAB PO ONE (07:00)
[2019-09-29] MEDS ORDERED: LIDOCAINE 5% (LIDODERM) PATCH TD ONE (07:00)
[2019-09-29] MEDS ORDERED: KETOROLAC 30 MG/ML VIAL (J1885) IV ONE (07:00)
[2019-09-29 07:49] VITALS: BP 148/84
[2019-09-29] MEDS ORDERED: KETAMINE HCL IV ONE ×2 (08:30→10:00)
[2019-09-29] MEDS ORDERED: NS IV ONE ×2 (08:30→10:00)
[2019-09-29] MEDS ORDERED: NAPR500T6 PO (09:38)
[2019-09-29] MEDS ORDERED: LIDO5DIS41 TOP (09:38)
[2019-09-29] MEDS ORDERED: **NOTE PATIENT COMMENT** MISC XX SCH (21:00)
== END 2019-09-29 10:13 | disposition home or self-care (01) ==
LOC: M ED 05:14
DX: G89.29 Other chronic pain (principal); M54.32 Sciatica, left side; M51.36 Other intervertebral disc degeneration, lumbar region; I10 Essential (primary) hypertension; Z85.118 Personal history of other malignant neoplasm of bronchus and lung; F17.210 Nicotine dependence, cigarettes, uncomplicated; Z79.51 Long term (current) use of inhaled steroids; Z79.84 Long term (current) use of oral hypoglycemic drugs; Z79.899 Other long term (current) drug therapy
CPT/HCPCS: 96365; 96375; 96376; 99284; J1885

== ENCOUNTER → 2019-10-20 | Outpatient (REF) | payer MEDICARE, MEDICAID ==
[~2019-10-20] MED LIST changes: +NAPR500T6 PO
[2019-10-20 17:47] LABS: HEMOGLOBIN A1c 5.5 %
[2019-10-20 17:57] LABS: ALT/SGPT 23 U/L (12-78); BILIRUBIN,TOTAL 0.3 MG/DL (0.2-1.0); BLOOD UREA NITROGEN 13 MG/DL (7-18); CALCIUM LEVEL 9.8 MG/DL (8.5-10.1); CARBON DIOXIDE LEVEL 32 MEQ/L (21-32); CHLORIDE LEVEL 103 MEQ/L (98-107); CREATININE FOR GFR 1.07 MG/DL (0.70-1.30); GLOMERULAR FILTRATION RATE > 60.0 (>56); GLUCOSE, FASTING 80 MG/DL (70-100); POTASSIUM SERUM 4.7 MEQ/L (3.5-5.1); SODIUM LEVEL 140 MEQ/L (136-145); TOTAL PROTEIN 7.2 GM/DL (6.4-8.2)
== END ==
LOC: M SFHCADAM 14:53
PROVIDERS: ATTEND Physician Assistant Medical
DX: E78.2 Mixed hyperlipidemia (principal); R73.01 Impaired fasting glucose

== ENCOUNTER → 2020-03-06 | Outpatient (CLI) | payer MEDICARE, MEDICAID ==
--- NOTE | 2020-03-06 17:42 | REP ---
REASON FOR EXAM: Followup. All prior chest CTs were reviewed, the latest 07/08/2019, which showed tree-in-bud appearing densities in the right upper lobe along with emphysematous changes. The lack of intravenous contrast decreases the sensitivity of the exam. The mediastinum and pulmonary sonido are unchanged. No mass or adenopathy has developed. There are no pleural or pericardial effusions. There is no change in the imaged upper abdomen or imaged osseous structures. Evaluation of the lung wall shows significant improvement in the abnormal density seen on the prior exam. There is a stable nodule, pleural based, in the right upper lobe partially obscured by respiratory motion artifact on the latest prior. This measures approximately 12 mm. Other similar sized and smaller nodules are seen scattered throughout the lung wall bilaterally. Some are pleural based and some were partially previously obscured by respiratory motion artifact. All nodules appear stable. They are numerable. There is cylindrical bronchiectasis, status quo. No definite new abnormal nodules, masses, or opacities have developed. IMPRESSION: Although somewhat difficult to compare to the latest prior exam and some of the small nodules have developed since the next latest prior of 04/06/2018, my overall impression is that the nodules are stable from as far back as 2011 with significant improvement in the tree-in-bud type nodules in the posterior segment of the right upper lobe. No definite new abnormalities have developed. Electronically Signed by Nabor Michaels DO 03/07/2020 08:04 A
== END ==
LOC: M RAD 09:13
PROVIDERS: ATTEND Internal Medicine Pulmonary Disease
DX: R91.8 Other nonspecific abnormal finding of lung field (principal)

== ENCOUNTER → 2020-10-07 | Outpatient (REF) | payer MEDICARE, MEDICAID ==
[~2020-10-07] MED LIST changes: -ALL10TAB29 PO; +AMLO1TAB24 PO; -AMLO5TAB6 PO; +CETI-24 PO
[2020-10-07 13:09] LABS: BASO # 0.1 10^3/uL (0.0-0.2); BASO % 0.6 % (0.0-1.0); EOS # 0.3 10^3/uL (0.0-0.5); EOS % 3.5 % (0.0-3.0); HEMATOCRIT 45.8 % (42.0-52.0); HEMOGLOBIN 15.1 g/dl (13.5-17.5); LYMPH # 1.9 10^3/uL (1.5-5.0); LYMPH % 22.8 % (24.0-44.0); MEAN CORPUSCULAR HEMOGLOBIN 30.3 pg (27.0-33.0); MEAN CORPUSCULAR VOLUME 91.8 fl (80.0-96.0); MONO # 0.8 10^3/uL (0.0-0.8); MONO % 9.9 % (0.0-5.0); NEUTROPHILS # 5.3 10^3/uL (1.5-8.5); PLATELET COUNT, AUTOMATED 272 10^3/uL (150-450); RED BLOOD COUNT 4.99 10^6/uL (4.30-6.10); WHITE BLOOD COUNT 8.5 10^3/uL (4.0-10.0)
[2020-10-07 13:48] LABS: ALBUMIN 3.6 GM/DL (3.2-5.2); ALT/SGPT 20 U/L (12-78); BILIRUBIN,TOTAL 0.5 MG/DL (0.2-1.0); BLOOD UREA NITROGEN 15 MG/DL (7-18); CALCIUM LEVEL 9.5 MG/DL (8.5-10.1); CARBON DIOXIDE LEVEL 30 MEQ/L (21-32); CHLORIDE LEVEL 106 MEQ/L (98-107); CHOLESTEROL LEVEL 222 MG/DL (<200); CHOLESTEROL RISK RATIO 5.162 (<5); CREATININE FOR GFR 0.84 MG/DL (0.70-1.30); GLOMERULAR FILTRATION RATE > 60.0 (>56); GLUCOSE, FASTING 80 MG/DL (70-100); HDL CHOLESTEROL 43 MG/DL (>40); LDL CHOLESTEROL 163 MG/DL (<100); NON-HDL-C 179 MG/DL; POTASSIUM SERUM 5.2 MEQ/L (3.5-5.1); SODIUM LEVEL 141 MEQ/L (136-145); TOTAL PROTEIN 6.5 GM/DL (6.4-8.2); TRIGLYCERIDES LEVEL 80 MG/DL (<150)
[2020-10-07 15:56] LABS: HEMOGLOBIN A1c 5.2 %
== END ==
LOC: M SFHCADAM 10:55
PROVIDERS: ATTEND Physician Assistant Medical
DX: E78.2 Mixed hyperlipidemia (principal); I10 Essential (primary) hypertension; R73.01 Impaired fasting glucose

== ENCOUNTER → 2020-11-15 | Outpatient (CLI) | payer MEDICARE, MEDICAID ==
[~2020-11-15] MED LIST changes: -LISI-538 PO; +LISI20TA33 PO
--- NOTE | 2020-11-15 18:01 | REP ---
INDICATION: ABN FINDING OF LUNG. COMPARISON: 03/06/2020, 07/08/2019, 04/06/2018. TECHNIQUE: Noncontrast CT chest protocol with coronal and sagittal reconstructions. FINDINGS: Lung wall are adequately inflated. There is some volume loss in the right hemithorax secondary to lobectomy. Some linear fibrotic changes are again seen in the lower and mid lung zone. Central bronchiectatic changes are mild. Small pleural based nodule in the right base on the diaphragm image 79 unchanged. Also posteriorly and deep sulcus another diaphragmatic base nodule or scar is seen and unchanged. Linear scarring in the right lateral base mid axillary line with a nodular component on image 75 about 10 mm and not previously seen. Some ill-defined patchy density posteriorly in the right upper lobe as ground-glass density or fibrotic change stable. Right lung without acute finding or interval change. Heart size unchanged no pericardial thickening or effusion. Calcifications in the aortic arch and descending aorta noted fluid in the superior pericardial recess seen without pericardial thickening or effusion no pathologic sized mediastinal, hilar, axillary or supraclavicular adenopathy/mass. No aortic aneurysm. Bone windows show the sternum, manubrium, medial clavicles, visualized scapulae, humeral heads, ribs and spine without acute finding. There marginal osteophytes in the mid lower thoracic spine without destructive lesions. There has been cervical fusion at least C5 through C7 unchanged. The upper abdomen shows no focal liver abnormality. That portion of gallbladder, pancreas and spleen seen were unremarkable. No hiatal hernia adrenal glands unchanged IMPRESSION: Postoperative changes from prior right lower lobectomy with a few small stable nodules or scar posteriorly abutting the diaphragm and anteriorly in the right base at the diaphragm, subcentimeter size and unchanged There is a new 10 mm nodular scar peripherally in the right lateral base image 75 see no other new or significant finding some chronic fibrotic change or ground-glass opacity posteriorly in the right upper lobe is again seen and stable. No other significant finding or interval change. <Electronically signed by Wander Muñoz > 11/15/20 [id number]
== END ==
LOC: M RAD 09:41
PROVIDERS: ATTEND Internal Medicine Pulmonary Disease
DX: R91.8 Other nonspecific abnormal finding of lung field (principal)

== ENCOUNTER → 2021-04-09 | Outpatient (REF) | payer MEDICARE, MEDICAID ==
[~2021-04-09] MED LIST changes: +GABA-283 PO; -GABA-845 PO; +OMEP40CA4 PO; -OMEP40CA97 PO
[2021-04-09 13:32] LABS: ALBUMIN 3.5 GM/DL (3.2-5.2); ALT/SGPT 20 U/L (12-78); BILIRUBIN,TOTAL 0.4 MG/DL (0.2-1.0); BLOOD UREA NITROGEN 12 MG/DL (7-18); CALCIUM LEVEL 8.8 MG/DL (8.5-10.1); CARBON DIOXIDE LEVEL 32 MEQ/L (21-32); CHLORIDE LEVEL 106 MEQ/L (98-107); CHOLESTEROL LEVEL 235 MG/DL (<200); CHOLESTEROL RISK RATIO 7.121 (<5); CREATININE FOR GFR 0.79 MG/DL (0.70-1.30); GLOMERULAR FILTRATION RATE > 60.0 (>56); GLUCOSE, FASTING 81 MG/DL (70-100); HDL CHOLESTEROL 33 MG/DL (>40); LDL CHOLESTEROL 177 MG/DL (<100); NON-HDL-C 202 MG/DL; POTASSIUM SERUM 5.2 MEQ/L (3.5-5.1); SODIUM LEVEL 139 MEQ/L (136-145); TOTAL PROTEIN 6.7 GM/DL (6.4-8.2); TRIGLYCERIDES LEVEL 127 MG/DL (<150)
[2021-04-09 14:01] LABS: HEMOGLOBIN A1c 5.4 %
== END ==
LOC: M SFHCADAM 11:26
PROVIDERS: ATTEND Physician Assistant Medical
DX: E78.2 Mixed hyperlipidemia (principal); R73.01 Impaired fasting glucose

== ENCOUNTER → 2021-05-21 | Outpatient (CLI) | payer MEDICARE, MEDICAID ==
--- NOTE | 2021-05-21 12:54 | REP ---
INDICATION: ABN FINDING OF LUNG COMPARISON: None TECHNIQUE: Axial noncontrast images from the thoracic inlet to the upper abdomen with coronal and sagittal reformations. This CT examination was performed using the following dose reduction techniques: Automated exposure control, adjustment of mA and/or kv according to the patient's size, and use of iterative reconstruction technique. FINDINGS: Bilateral chronic and right-sided postsurgical changes are again noted and appear relatively stable as compared through 03/06/2020. The new area curvilinear scarring along the lateral aspect of the right lower lobe identified on 11/15/2020 of remains essentially unchanged when allowing for variation in technique. Scattered noncalcified nodular densities also appear relatively stable and unchanged. However, a 3 mm nodule in the periphery of the right lower lobe (series 201; image 64) appears slightly more prominent and few small new subpleural nodules (as example, medial left sulcus image 87) are identified. These findings likely represent progressive granulomatous chronic change. No new consolidation, large nodule or mass lesion appreciated. No effusion. No pneumothorax. No significant acute adenopathy. Evaluation of the mediastinum demonstrates stable atherosclerotic changes to the thoracic aorta and coronary arteries. No cardiomegaly or pericardial effusion. Skeletal structures demonstrate postsurgical and degenerative changes. IMPRESSION: 1. Primarily stable chronic and postsurgical changes as described above including the previously identified new area of scarring along the lateral aspect of the right lower lobe. 2. Very small new noncalcified nodules and subtle increased prominence to a single left lower lobe pulmonary nodule likely represent progressive granulomatous change and less likely suspicious lesions. Consider 6-9 month follow-up examination if clinically warranted. <Electronically signed by Trey Tolentino > 05/21/21 [id number]
== END ==
LOC: M RAD 09:08
PROVIDERS: ATTEND Internal Medicine Pulmonary Disease
DX: R91.8 Other nonspecific abnormal finding of lung field (principal)

== ENCOUNTER → 2021-10-10 | Outpatient (REF) | payer MEDICARE, MEDICAID ==
[2021-10-10 14:01] LABS: BASO # 0.1 10^3/uL (0.0-0.2); BASO % 0.7 % (0.0-1.0); EOS # 0.2 10^3/uL (0.0-0.5); EOS % 3.1 % (0.0-3.0); HEMATOCRIT 47.6 % (42.0-52.0); HEMOGLOBIN 15.4 g/dl (13.5-17.5); LYMPH # 1.7 10^3/uL (1.5-5.0); LYMPH % 22.7 % (24.0-44.0); MEAN CORPUSCULAR HEMOGLOBIN 29.6 pg (27.0-33.0); MEAN CORPUSCULAR HGB CONC 32.4 g/dl (32.0-36.5); MEAN CORPUSCULAR VOLUME 91.5 fl (80.0-96.0); MONO # 0.8 10^3/uL (0.0-0.8); MONO % 9.9 % (2.0-8.0); NEUTROPHILS # 4.9 10^3/uL (1.5-8.5); NEUTROPHILS % 63.5 % (36.0-66.0); PLATELET COUNT, AUTOMATED 352 10^3/uL (150-450); WHITE BLOOD COUNT 7.7 10^3/uL (4.0-10.0)
[2021-10-10 14:32] LABS: ALBUMIN 3.6 GM/DL (3.2-5.2); ALT/SGPT 17 U/L (12-78); BILIRUBIN,TOTAL 0.4 MG/DL (0.2-1.0); BLOOD UREA NITROGEN 15 MG/DL (7-18); CALCIUM LEVEL 9.3 MG/DL (8.5-10.1); CARBON DIOXIDE LEVEL 31 MEQ/L (21-32); CHLORIDE LEVEL 103 MEQ/L (98-107); CHOLESTEROL LEVEL 212 MG/DL (<200); CHOLESTEROL RISK RATIO 6.057 (<5); CREATININE FOR GFR 0.72 MG/DL (0.70-1.30); GLOMERULAR FILTRATION RATE > 60.0 (>56); GLUCOSE, FASTING 124 MG/DL (70-100); HDL CHOLESTEROL 35 MG/DL (>40); LDL CHOLESTEROL 156 MG/DL (<100); NON-HDL-C 177 MG/DL; POTASSIUM SERUM 4.2 MEQ/L (3.5-5.1); SODIUM LEVEL 138 MEQ/L (136-145); TOTAL 25(OH) VITAMIN D 20.3 NG/ML (30.0-100.0); TRIGLYCERIDES LEVEL 105 MG/DL (<150)
== END ==
LOC: M SFHCPLAZ 09:10
PROVIDERS: ATTEND Physician Assistant Medical
DX: I11.0 Hypertensive heart disease with heart failure (principal); E78.2 Mixed hyperlipidemia; I50.32 Chronic diastolic (congestive) heart failure; Z79.899 Other long term (current) drug therapy

== ENCOUNTER → 2021-11-06 | Outpatient (REF) | payer MEDICARE, MEDICAID | LOC: M SFHCADAM 12:28 | PROVIDERS: ATTEND Physician Assistant Medical | DX: J02.9 Acute pharyngitis, unspecified (principal); S16.1XXA Strain of muscle, fascia and tendon at neck level, initial encounter; X58.XXXA Exposure to other specified factors, initial encounter; Y92.9 Unspecified place or not applicable; Y99.9 Unspecified external cause status ==

== ENCOUNTER → 2021-12-08 | Outpatient (CLI) | payer MEDICARE, MEDICAID | LOC: M PLAIMG 08:04 | PROVIDERS: ATTEND Internal Medicine Pulmonary Disease | DX: R91.8 Other nonspecific abnormal finding of lung field (principal) ==